=== PATIENT | female | born 1990 | race Caucasian/White ===

== ENCOUNTER 2024-05-03 11:28 | Emergency (ER) | payer OTHER, SELFPAY ==
[2024-05-03 11:33] VITALS: BP 132/87; PULSE 78; RESP 22; TEMP 36.9; O2SAT 96
--- NOTE | 2024-05-03 11:56 | CRLHL7_ITS ---
For Patients: As a result of the Century Cures Act, medical imaging exams and procedure reports are released immediately into your electronic medical record. You may view this report before your referring provider. If you have questions, please contact your health care provider. Indication: BLEEDING AND CRAMPING IN EARLY LMP: 03/19/2024 Technique: Real-time sonographic images of the pelvis were obtained transvaginally using grayscale, color, and Doppler imaging. Comparison: None. Findings: Uterus: Increased vascularity at the fundus. Endometrium: 2.3 centimeter in thickness, vascularity seen at the fundus Gestational sac: Not visualized. pole: Not visualized. Right ovary: Size: 3.1 x 1.9 x 2.3 cm. Appearance: Normal morphology. Corpus luteum measures 2.4 x 1.3 x 1.9 centimeter. Left ovary: Size: 2.7 x 1.3 x 1.8 cm. Appearance: Normal morphology. No masses. Bladder: Visualized bladder is normal. Other: No free fluid. Impression: No intrauterine gestational sac is identified. Findings may be seen in setting of early , missed , or ectopic . Recommend follow-up with serial beta-hCG and/or ultrasound. Dictated by Abran Cotto MD @ 05/03/2024 12:25:01 PM (Electronically Signed)
--- NOTE | 2024-05-03 11:58 | ED_ITS ---
HPI - General Adult General Chief complaint: Vaginal Bleeding Stated complaint: bleeding/cramping 7 weeks - shoulder pain Time Seen by Provider: 05/03/24 11:42 History of Present Illness HPI narrative: This 34-year-old female comes in reporting some abdominal cramping in the right lower quadrant and across the lower abdomen for the past day or so. She has also had some vaginal bleeding where she changed a pad after about 24 hours. She states that she is about 6 weeks . She is visiting here from [place]. She does not report any fevers, dysuria, or food intolerance. She does have some chronic mild diarrhea. She arrives here with normal vital signs. Related Data Home Medications ?Medication ?Instructions ?Recorded ?Confirmed No Known Home Medications 05/03/24 05/03/24 Allergies Allergy/AdvReac Type Severity Reaction Status Date / Time coconut Allergy Mild Rash Verified 05/03/24 11:36 Review of Systems Status of ROS: Reports: 10 or more systems reviewed and unremarkable except as noted in History and below Narrative: Constitutional: No fevers, no weight gain or loss. Eyes: No discharge. No vision changes. HENT: No congestion, no sore throat, no ear pain. Cardiovascular: No chest pain, no palpitations. Respiratory: No shortness of breath, no wheezes, no cough. Gastrointestinal: Occasional episodes of diarrhea. Crampy abdominal pain. Genitourinary: No dysuria, no hematuria. Musculoskeletal: Normal range of motion. Skin: No rashes, no pruritis. Neurological: No dizziness, weakness, sensory change, speech change. Endo/Heme/Allergies: No bruising or bleeding. No polydipsia. Pysch: no suicidality, no anxiety, no insomnia. All other systems reviewed and are negative. PFSH PFS Social History Smoking Status: Never smoker Do you use any of these nicotine containing products: None How often do you have a drink containing alcohol: never How often do you have six or more drinks on one occasion: Never AUDIT-C Alcohol total score: 0 Non-prescribed substance use: denies use Exam Narrative: Exam Narrative: Constitutional: Well-developed, well-nourished, no acute distress. HEENT: Normocephalic, atraumatic. Neck: Normal range of motion. Nontender. Supple. Heart: Regular. No murmurs. Normal rate. Intact distal pulses. Lungs: Clear to auscultation. No chest discomfort. No wheezes, rhonchi, or rales. Abdomen: Normal bowel sounds. No rebound tenderness. Diffuse tenderness across the lower abdomen. No tenderness when palpating at McBurney's point. Genitalia: Deferred. Back: No midline tenderness. Normal range of motion. Extremities: Normal range of motion. No injury. Skin: Intact. No rash. Warm. No erythema or pallor. Neurologic: No altered sensation. No weakness. Alert and oriented. Psychiatric: No suicidality. No anxiety or depression. No insomnia. Nursing notes and vitals signs are reviewed. Const: Vital Signs, click to edit/add: Vital Signs - 24 hr 05/03/24 11:33 05/03/24 14:12 Temperature 98.4 F Pulse Rate [Pulse Oximeter] 78 77 Respiratory Rate 22 18 Blood Pressure [Ri t Upper Arm] 132/87 135/96 H Pulse Oximetry 96 94 Oxygen Delivery Me thod Room Air Room Air Course Vital Signs Vital signs: Initial Vital Signs Temperature 98.4 F 05/03/24 11:33 Temperature Source Temporal Artery Scan 05/03/24 11:33 Pulse Rate 78 05/03/24 11:33 Pulse Rhythm Regular 05/03/24 11:33 Pulse Strength 3+ Normal 05/03/24 11:33 Respiratory Rate 22 05/03/24 11:33 Blood Pressure 132/87 05/03/24 11:33 Blood Pressure Mean 102 05/03/24 11:33 Blood Pressure Position Sitting 05/03/24 11:33 Pulse Oximetry 96 05/03/24 11:33 Oxygen Delivery Method Room Air 05/03/24 11:33 Vital Signs Temperature 98.4 F 05/03/24 11:33 Pulse Rate 78 05/03/24 11:33 Respiratory Rate 22 05/03/24 11:33 Blood Pressure 132/87 05/03/24 11:33 Pulse Oximetry 96 05/03/24 11:33 Oxygen Delivery Method Room Air 05/03/24 11:33 Temperature 98.4 F 05/03/24 11:33 Pulse Rate 77 05/03/24 14:12 Respiratory Rate 18 05/03/24 14:12 Blood Pressure 135/96 H 05/03/24 14:12 Pulse Oximetry 94 05/03/24 14:12 Oxygen Delivery Method Room Air 05/03/24 14:12 Medical Decision Making MDM Narrative Medical decision making narrative: This patient comes in with abdominal cramping and vaginal bleeding and reports that she is 6 weeks . Ultrasound of the abdomen shows no intrauterine and no evidence of ectopic . Beta HCG returns rather low at 183. Most likely she is miscarrying this . Her vital signs are stable. She is okay to return home. I did describe signs and symptoms would indicate need for return and re-evaluation. Lab Data Labs: Lab Results 05/03/24 Range/Units 12:50 WBC 8.18 (4.50-11.00) K/uL RBC 4.84 (4.00-5.20) m/uL Hgb 14.9 (12.0-16.0) gm/dL Hct 44.6 (33.0-51.0) % MCV 92 (80-100) fL MCH 31 (26-34) pg MCHC 33 (32-36) gm/dL RDW Coeff of Julia 12.2 (11.5-15.5) % Plt Count 210 (140-440) K/uL Neut % (Auto) 70.8 (42.0-72.0) % Lymph % (Auto) 22.2 (20-44) % Gage % (Auto) 5.9 (0.0-11.0) % Eos % (Auto) 0.6 (0.0-7.0) % Baso % (Auto) 0.4 (0.0-3.0) % Neut # (Auto) 5.79 (1.7-7.0) K/uL Lymph # (Auto) 1.82 (0.90-2.90) K/uL Gage # (Auto) 0.50 (0.00-0.90) K/UL Eos # (Auto) 0.05 (0.00-0.50) K/uL Baso # (Auto) 0.03 (0.00-0.30) K/uL Abs Immat Gran (auto) 0.01 (0.00-0.30) K/uL Imm/Tot Granulo (auto) 0.1 % HCG, Quant 183.72 mIU/mL Blood Type O Positive Antibody Screen NEGATIVE Imaging Data US - abdomen: Radiologist's impression: No intrauterine gestational sac is identified. Findings may be seen in setting of early , missed , or ectopic . Recommend follow-up with serial beta-hCG and/or ultrasound. Discharge Plan Discharge Clinical Impression: Miscarriage Patient Disposition: Home, Self-Care Condition: Stable Additional Instructions: Drink plenty of fluids. Use [id number] medicines as needed and directed. Follow-up with OBGYN clinic. Return if worsening. Prescriptions: No Action No Known Home Medications Follow Up/Referrals: Provider,Not a Local [Primary Care Provider] - Stand Alone Forms: [employer]ee[employer] - [employer] Fees Info Instructions
[2024-05-03 13:01] LABS: Basophils Absolute Auto 0.03 K/uL (0.00-0.30); Basophils Percent Auto 0.4 % (0.0-3.0); Eosinophils Absolute Auto 0.05 K/uL (0.00-0.50); Eosinophils Percent Auto 0.6 % (0.0-7.0); Hematocrit 44.6 % (33.0-51.0); Hemoglobin* 14.9 gm/dL (12.0-16.0); Immature Granulocytes Abs Auto 0.01 K/uL (0.00-0.30); Immature Granulocytes Pct Auto 0.1 %; Lymphocytes Absolute Auto 1.82 K/uL (0.90-2.90); Lymphocytes Percent Auto 22.2 % (20-44); Mean Corpuscular HGB Conc 33 gm/dL (32-36); Mean Corpuscular Hemoglobin 31 pg (26-34); Mean Corpuscular Volume 92 fL (80-100); Monocytes Percent Auto 5.9 % (0.0-11.0); Neutrophils Absolute Auto 5.79 K/uL (1.7-7.0); Neutrophils Percent Auto 70.8 % (42.0-72.0); Platelet Count* 210 K/uL (140-440); RDW Coefficient of Variation % 12.2 % (11.5-15.5); Red Blood Count 4.84 m/uL (4.00-5.20); White Blood Count* 8.18 K/uL (4.50-11.00)
[2024-05-03 13:25] LABS: Slide Review Reflex No
[2024-05-03 13:35] LABS: HCG Quantitative* 183.72 mIU/mL
[2024-05-03 14:12] VITALS: BP 135/96; PULSE 77; RESP 18; O2SAT 94
== END 2024-05-03 14:29 | disposition home or self-care (01) ==
PROVIDERS: Emergency Provider Emergency Medicine Emergency Medical Services
DX: O03.9 Complete or unspecified spontaneous abortion without complication (principal)
CPT/HCPCS: 36415; 76817; 84702; 85025; 86850; 86900; 86901; 99283; 99284